=== PATIENT | female | born 1965 | race African-American/Black ===

== ENCOUNTER 2016-11-29 12:20 | Emergency (ER) | payer OTHER ==
[~2016-11-29] VITALS: Ht 162 cm; Wt 48.1 kg
[~2016-11-29 12:20] MED LIST: 'PARAFON FORTE500 M1 PO; ACYCLOVIR800 MG PO; ANAPROX DS550 MG PO; ANTIVERT/2525 M1 PO; ANTIVERT/2525 MG PO; BACTRIM DS 8001 TA1 PO; CIPRO250 MG PO; CIPRO500 MG PO; CIPRODEX 0.3%-7.5 ML OT; CIPROFLOXACIN500 MG PO; CLARITIN10 MG PO; CLINDAMYCIN HC300 MG PO; DARVOCET N 1001 TAB PO; DAYPRO600 M1 PO; DIFLUCAN150 MG PO; DULOXETINE HCL; DULOXETINE HCL30 MG PO; FIORICET 325 MG1 TAB PO; FLAGYL500 MG PO; FLEXERIL10 MG PO; FLEXERIL5 MG PO; FLONASE ALLERG9.9 ML NAS; HYDROCODONE BIT1 T11 PO; KEFLEX500 M1 PO; MACROBID100 M1 PO; MACRODANTIN100 MG PO; MEDROL DOSEPAK4 MG PO; MOBIC7.5 MG PO; MOTRIN800 MG PO; NAPROSYN500 MG PO; NEURONTIN100 MG PO; NEURONTIN300 MG PO; PREDNICOT20 MG PO; PREDNISONE10 MG PO; PREDNISONE20 MG PO; PROVENTIL0.09 MG/AC IH; PYRIDIUM100 MG PO; PYRIDIUM200 M1 PO; PYRIDIUM200 MG PO; ROBITUSSIN AC 110 ML PO; TRAMADOL HCL50 MG PO; TRAMADOL50 MG PO; TYLENOL325 M2 PO; ULTRAM50 MG PO; VENTOLIN H0.09 MG/AC INH; VICO10300 PO; VICODIN 5/500 505 MG PO; VISTARIL50 MG PO; VITAMIN D50000 I3 PO; VITAMIN D50000 IU PO; XANAX0.5 MG PO; ZITHROMAX Z PA250 MG PO; ZITHROMAX100 MG/51 PO; ZITHROMAX250 MG PO; ZOFRAN ODT4 MG SL; ZOFRAN4 MG PO
[2016-11-29 12:33] VITALS: BP 127/65
[2016-11-29] MEDS ORDERED: ULTRAM50 MG PO (12:42)
[2016-11-29] MEDS ORDERED: MACRODANTIN100 M1 PO (12:43)
[2016-11-29 13:27] LABS: BILIRUBIN 1+ (NEGATIVE); BLOOD 3+ (NEGATIVE); CLARITY SL CLOUDY (CLEAR); COLOR YELLOW (YELLOW); GLUCOSE NEGATIVE (NEGATIVE); KETONE TRACE (NEGATIVE); LEUKO ESTERASE 1+ (NEGATIVE); NITRITE NEGATIVE (NEGATIVE); PH 6.5 (5.0-9.0); PROTEIN TRACE (NEGATIVE)
[2016-11-29 14:22] LABS: BACTERIA 2+; CALCIUM OXALATE CRYSTALS TRACE; WBC 16-20 wbc/hpf (0-5)
[2016-11-29 14:23] LABS: URINE REFLEX COMMENT YES (NO)
== END 2016-11-29 14:33 | disposition home or self-care (01) ==
LOC: ED 12:20
PROVIDERS: Physician Assistant
DX: N76.0 Acute vaginitis (principal); A59.9 Trichomoniasis, unspecified; F17.200 Nicotine dependence, unspecified, uncomplicated; Z98.51 Tubal ligation status; Z88.0 Allergy status to penicillin; Z88.1 Allergy status to other antibiotic agents; Z88.8 Allergy status to other drugs, medicaments and biological substances; Z91.040 Latex allergy status; Z98.890 Other specified postprocedural states

== ENCOUNTER → 2017-03-14 | Outpatient (CLI) | payer OTHER ==
[~2017-03-14] MED LIST changes: +MACRODANTIN100 M1 PO
== END | disposition home or self-care (01) ==
LOC: RESCLI 09:34
DX: R03.0 Elevated blood-pressure reading, without diagnosis of hypertension (principal); G89.29 Other chronic pain; Z72.0 Tobacco use

== ENCOUNTER → 2017-04-30 | Outpatient (CLI) | payer OTHER | END | disposition home or self-care (01) | LOC: RESCLI 00:23 | DX: F33.9 Major depressive disorder, recurrent, unspecified (principal); F41.1 Generalized anxiety disorder; R44.0 Auditory hallucinations; D22.9 Melanocytic nevi, unspecified; F17.200 Nicotine dependence, unspecified, uncomplicated ==

== ENCOUNTER 2017-06-11 12:40 | Emergency (ER) | payer OTHER ==
[~2017-06-11] VITALS: Ht 160 cm; Wt 45.4 kg
[2017-06-11 12:46] VITALS: BP 145/70
[2017-06-11] MEDS ORDERED: CLINDAMYCIN HC300 MG PO (13:11)
== END 2017-06-11 13:15 | disposition home or self-care (01) ==
LOC: ED 12:40
DX: K08.89 Other specified disorders of teeth and supporting structures (principal); F17.200 Nicotine dependence, unspecified, uncomplicated; Z98.51 Tubal ligation status; Z88.0 Allergy status to penicillin; Z88.6 Allergy status to analgesic agent; Z88.1 Allergy status to other antibiotic agents; Z91.040 Latex allergy status

== ENCOUNTER → 2017-06-25 | Outpatient (CLI) | payer OTHER ==
--- NOTE | ~2017-06-25 | EKG ---
[place], [place] ELECTROCARDIOGRAM REPORT NAME: [facility]: [id number] UNIT #: [id number] ROOM: DOCTOR: TEE MALDONADO MD BIRTHDATE: [birth year] DOS: 06/25/2017 TIME: 14:42:37. This is a 51-year-old female. Heart rate is 71, normal sinus rhythm at 71 beats per minute. IN interval is 151 milliseconds, QRS duration 92 milliseconds. Corrected QT interval 440 milliseconds, QRS axis is 92. IMPRESSION: 1. Normal sinus rhythm. 2. Minimal ST elevation in lead 2, 3, aVF; T-wave inversion in V1, V2. Inferior septal ischemia should be ruled out in the patient. No old EKG to compare for the patient. TEE MALDONADO MD CM:EKGRPT:ELECTROCARDIOGRAM REPORT [id number] TEE MALDONADO MD
[2017-06-25 15:14] LABS: BASO # 0.1 10*3/uL (0.0-0.1); BASO % 0.7 % (0.0-1.0); EOS # 0.1 10*3/uL (0.0-0.4); EOS % 1.8 % (1.0-4.0); HEMATOCRIT 41.4 % (37.0-47.0); HEMOGLOBIN 13.5 g/dl (12.0-16.0); LYMPH # 3.3 10*3/uL (1.3-4.4); LYMPH % 44.8 % (27.0-41.0); MEAN CELL VOLUME 84.3 fl (81.0-99.0); MEAN CORPUSCULAR HGB 27.5 pg (27.0-31.0); MEAN CORPUSCULAR HGB CONC 32.6 g/dl (33.0-37.0); MEAN PLATELET VOLUME 9.2 fl (9.6-12.3); MONO # 0.5 10*3/uL (0.1-1.0); MONO % 6.3 % (3.0-9.0); NEUT # 3.4 10*3/uL (2.3-7.9); NEUT % 46.3 % (47.0-73.0); PLATELET COUNT AUTOMATED 306 10*3/uL (130-400); RED BLOOD COUNT 4.91 10*6/uL (4.10-5.10); RED CELL DISTRI WIDTH 13.2 % (0-14.5); WHITE BLOOD COUNT 7.4 10*3/uL (4.8-10.8)
[2017-06-25 15:38] LABS: ALBUMIN 4.1 gm/dl (3.1-4.5); ALKALINE PHOSPHATASE 87 U/L (45-117); BUN 8 mg/dl (7-24); CHLORIDE 108 mmol/L (98-107); CREATININE 0.71 mg/dL (0.55-1.02); POTASSIUM 3.9 mmol/L (3.5-5.1); SGOT/AST 14 IU/L (3-35); SGPT/ALT 18 U/L (12-78); SODIUM 140 mmol/L (136-145); TOTAL PROTEIN 7.8 gm/dL (6.4-8.2)
== END | disposition home or self-care (01) ==
LOC: LAB 03:40 → RESCLI 03:40
PROVIDERS: Hospitalist
DX: Z41.9 Encounter for procedure for purposes other than remedying health state, unspecified (principal); R79.89 Other specified abnormal findings of blood chemistry

== ENCOUNTER → 2017-07-02 | Outpatient (CLI) | payer OTHER ==
[~2017-07-02] MED LIST changes: +FEROSUL325 MG PO; +ROBITUSSIN DM 105 ML PO; +VITAMIN D400 UNIT/1 PO
== END | disposition home or self-care (01) ==
LOC: RESCLI 04:30
DX: Z41.9 Encounter for procedure for purposes other than remedying health state, unspecified (principal); E61.1 Iron deficiency; E55.9 Vitamin D deficiency, unspecified; F41.1 Generalized anxiety disorder; G89.29 Other chronic pain; Z72.0 Tobacco use; Z71.6 Tobacco abuse counseling; Z88.0 Allergy status to penicillin; Z88.6 Allergy status to analgesic agent; Z88.1 Allergy status to other antibiotic agents; Z91.040 Latex allergy status

== ENCOUNTER → 2017-07-09 | Outpatient (CLI) | payer OTHER ==
[~2017-07-09] MED LIST changes: -FEROSUL325 MG PO; -ROBITUSSIN DM 105 ML PO; -VITAMIN D400 UNIT/1 PO
== END | disposition home or self-care (01) ==
LOC: RESCLI 03:13
DX: Z41.9 Encounter for procedure for purposes other than remedying health state, unspecified (principal); E61.1 Iron deficiency; E55.9 Vitamin D deficiency, unspecified; F41.1 Generalized anxiety disorder; G89.29 Other chronic pain; Z72.0 Tobacco use; Z71.6 Tobacco abuse counseling; Z88.0 Allergy status to penicillin; Z88.1 Allergy status to other antibiotic agents; Z91.040 Latex allergy status; Z88.6 Allergy status to analgesic agent

== ENCOUNTER → 2017-07-10 | Outpatient (CLI) | payer OTHER | END | disposition home or self-care (01) | LOC: CARD 13:42 | DX: I08.1 Rheumatic disorders of both mitral and tricuspid valves (principal); R94.31 Abnormal electrocardiogram [ECG] [EKG] ==

== ENCOUNTER 2017-07-19 11:10 | Emergency (ER) | payer OTHER ==
[~2017-07-19] VITALS: Ht 162.5 cm; Wt 45.8 kg
[2017-07-19] MEDS ORDERED: VITAMIN D400 UNIT/1 PO (11:22)
[2017-07-19] MEDS ORDERED: FEROSUL325 MG PO (11:24)
[2017-07-19 11:29] VITALS: BP 103/70
[2017-07-19] MEDS ORDERED: FLONASE ALLERG9.9 ML NAS (11:37)
[2017-07-19] MEDS ORDERED: PREDNISONE10 MG PO (11:37)
[2017-07-19] MEDS ORDERED: CLARITIN10 MG PO (11:37)
[2017-07-19] MEDS ORDERED: ROBITUSSIN DM 105 ML PO (11:37)
== END 2017-07-19 12:29 | disposition home or self-care (01) ==
LOC: ED 11:10
DX: B34.9 Viral infection, unspecified (principal); F17.200 Nicotine dependence, unspecified, uncomplicated; Z98.51 Tubal ligation status; Z79.899 Other long term (current) drug therapy; Z88.0 Allergy status to penicillin; Z88.1 Allergy status to other antibiotic agents; Z88.6 Allergy status to analgesic agent; Z91.040 Latex allergy status; Z88.8 Allergy status to other drugs, medicaments and biological substances

== ENCOUNTER → 2017-08-08 | Outpatient (CLI) | payer OTHER ==
[~2017-08-08] MED LIST changes: +FEROSUL325 MG PO; +ROBITUSSIN DM 105 ML PO; +VITAMIN D400 UNIT/1 PO
== END | disposition home or self-care (01) ==
LOC: RESCLI 03:38
DX: Z41.9 Encounter for procedure for purposes other than remedying health state, unspecified (principal); E61.1 Iron deficiency; E55.9 Vitamin D deficiency, unspecified; F41.1 Generalized anxiety disorder; R63.6 Underweight; G89.29 Other chronic pain; Z72.0 Tobacco use; Z71.6 Tobacco abuse counseling

== ENCOUNTER 2017-10-11 22:14 | Emergency (ER) | payer OTHER ==
[~2017-10-11] VITALS: Ht 167.6 cm; Wt 56.7 kg
[2017-10-11 22:19] VITALS: BP 125/75
[2017-10-11] MEDS ORDERED: PROAIR HFA8.5 GM INH (22:52)
[2017-10-11] MEDS ORDERED: ZITHROMAX250 MG PO (22:52)
[2017-10-11] MEDS ORDERED: PREDNISONE20 M1 PO (22:52)
== END 2017-10-11 23:47 | disposition home or self-care (01) ==
LOC: ED 22:14
DX: J20.9 Acute bronchitis, unspecified (principal); F17.200 Nicotine dependence, unspecified, uncomplicated; Z88.0 Allergy status to penicillin; Z88.1 Allergy status to other antibiotic agents; Z88.6 Allergy status to analgesic agent; Z91.040 Latex allergy status; Z88.8 Allergy status to other drugs, medicaments and biological substances; Z79.899 Other long term (current) drug therapy

== ENCOUNTER → 2017-10-16 | Outpatient (CLI) | payer OTHER ==
[~2017-10-16] MED LIST changes: +PREDNISONE20 M1 PO; +PROAIR HFA8.5 GM INH
[2017-10-16 09:49] LABS: HEMATOCRIT 39.3 % (37.0-47.0); HEMOGLOBIN 12.9 g/dl (12.0-16.0); MEAN CELL VOLUME 83.3 fl (81.0-99.0); MEAN CORPUSCULAR HGB 27.3 pg (27.0-31.0); MEAN CORPUSCULAR HGB CONC 32.8 g/dl (33.0-37.0); MEAN PLATELET VOLUME 9.1 fl (9.6-12.3); PLATELET COUNT AUTOMATED 302 10*3/uL (130-400); RED BLOOD COUNT 4.72 10*6/uL (4.10-5.10); RED CELL DISTRI WIDTH 13.2 % (0-14.5); WHITE BLOOD COUNT 12.8 10*3/uL (4.8-10.8)
[2017-10-16 10:05] LABS: ALBUMIN 3.9 gm/dl (3.1-4.5); ALKALINE PHOSPHATASE 63 U/L (45-117); BUN 8 mg/dl (7-24); CHLORIDE 105 mmol/L (98-107); CREATININE 0.73 mg/dL (0.55-1.02); POTASSIUM 3.8 mmol/L (3.5-5.1); SGOT/AST 13 IU/L (3-35); SGPT/ALT 25 U/L (12-78); SODIUM 140 mmol/L (136-145); TOTAL PROTEIN 7.5 gm/dL (6.4-8.2)
[2017-10-16 10:13] LABS: ATYPICAL LYMPHS 5 % (0-0); PLATELET SUFFICIENCY NORMAL (NORMAL); TOTAL CELLS COUNTED 100 #CELLS
== END | disposition home or self-care (01) ==
LOC: LAB 01:02 → RESCLI 01:02
PROVIDERS: Hospitalist
DX: Z41.9 Encounter for procedure for purposes other than remedying health state, unspecified (principal); E61.1 Iron deficiency; E55.9 Vitamin D deficiency, unspecified; F41.1 Generalized anxiety disorder; G89.29 Other chronic pain; Z72.0 Tobacco use; Z71.6 Tobacco abuse counseling

== ENCOUNTER 2017-11-02 11:44 | Emergency (ER) | payer OTHER ==
[~2017-11-02] VITALS: Ht 162.5 cm; Wt 45.8 kg
[2017-11-02 11:54] VITALS: BP 107/66
[2017-11-02] MEDS ORDERED: CHLORZOXAZONE500 M2 PO (12:48)
[2017-11-02] MEDS ORDERED: ZOFRAN4 MG PO (13:57)
== END 2017-11-02 13:55 | disposition home or self-care (01) ==
LOC: ED 11:44
DX: M54.2 Cervicalgia (principal); F17.200 Nicotine dependence, unspecified, uncomplicated; Z98.51 Tubal ligation status; Z79.899 Other long term (current) drug therapy; Z88.0 Allergy status to penicillin; Z88.1 Allergy status to other antibiotic agents; Z88.6 Allergy status to analgesic agent; Z91.040 Latex allergy status; Z88.8 Allergy status to other drugs, medicaments and biological substances

== ENCOUNTER 2018-01-19 16:25 | Emergency (ER) | payer OTHER ==
[~2018-01-19] VITALS: Ht 162.5 cm; Wt 47.6 kg
[~2018-01-19 16:25] MED LIST changes: +CHLORZOXAZONE500 M2 PO
[2018-01-19 16:26] VITALS: BP 123/79
[2018-01-19 16:46] LABS: BILIRUBIN NEGATIVE (NEGATIVE); BLOOD 1+ (NEGATIVE); CLARITY CLEAR (CLEAR); COLOR ORANGE (YELLOW); GLUCOSE TRACE (NEGATIVE); KETONE NEGATIVE (NEGATIVE); LEUKO ESTERASE 3+ (NEGATIVE); NITRITE POSITIVE (NEGATIVE); PH 6.5 (5.0-9.0); SPECIFIC GRAVITY <= 1.005 (1.005-1.030)
[2018-01-19 16:51] LABS: BACTERIA 2+; WBC 16-20 wbc/hpf (0-5)
[2018-01-19] MEDS ORDERED: SEPTDS PO (17:22)
== END 2018-01-19 17:31 | disposition home or self-care (01) ==
LOC: ED 16:25
PROVIDERS: Registered Nurse
DX: N39.0 Urinary tract infection, site not specified (principal); Z11.3 Encounter for screening for infections with a predominantly sexual mode of transmission; Z98.51 Tubal ligation status; Z79.899 Other long term (current) drug therapy; Z88.1 Allergy status to other antibiotic agents; Z91.040 Latex allergy status; Z88.6 Allergy status to analgesic agent; Z88.0 Allergy status to penicillin

== ENCOUNTER → 2018-01-22 | Outpatient (CLI) | payer OTHER ==
[~2018-01-22] MED LIST changes: +SEPTDS PO
[2018-01-22 11:54] LABS: BILIRUBIN 1+ (NEGATIVE); BLOOD 3+ (NEGATIVE); CLARITY SL CLOUDY (CLEAR); COLOR YELLOW (YELLOW); GLUCOSE NEGATIVE (NEGATIVE); KETONE TRACE (NEGATIVE); LEUKO ESTERASE TRACE (NEGATIVE); NITRITE NEGATIVE (NEGATIVE); SPECIFIC GRAVITY 1.025 (1.005-1.030)
[2018-01-22 12:07] LABS: BACTERIA TRACE; CALCIUM OXALATE CRYSTALS 1+; RBC 21-30 rbc/hpf (0-2)
== END | disposition home or self-care (01) ==
LOC: RESCLI 11:46
PROVIDERS: Internal Medicine Nephrology
DX: G89.29 Other chronic pain (principal); R39.9 Unspecified symptoms and signs involving the genitourinary system; E61.1 Iron deficiency; E55.9 Vitamin D deficiency, unspecified; R63.6 Underweight; F17.210 Nicotine dependence, cigarettes, uncomplicated

== ENCOUNTER → 2018-05-16 | Outpatient (CLI) | payer OTHER ==
[~2018-05-16] MED LIST changes: +VITAMIN D31000 UNI1 PO
== END | disposition home or self-care (01) ==
LOC: RAD 10:38
DX: Z01.411 Encounter for gynecological examination (general) (routine) with abnormal findings (principal); Z13.820 Encounter for screening for osteoporosis; R10.2 Pelvic and perineal pain; R10.32 Left lower quadrant pain; D25.9 Leiomyoma of uterus, unspecified; Z78.0 Asymptomatic menopausal state

== ENCOUNTER → 2018-06-21 | Day surgery (SDC) | payer OTHER ==
[~2018-06-21] VITALS: Ht 162.5 cm; Wt 46.7 kg
--- NOTE | ~2018-06-21 | PROC NOTE ---
[place], [place] PROCEDURE NOTE NAME: JOSEFINA VILLAFUERTE [facility] #: [id number] UNIT #: [id number] ROOM: DOCTOR: NIKOS CANO MD BIRTHDATE: [birth year] DOS: 06/21/2018 PROCEDURE: Colonoscopy. INDICATION FOR PROCEDURE: Colon cancer screening. The informed consent was obtained from the patient after indication of procedure, the alternatives and potential complications were explained to her. PROCEDURE MEDICATION: Sedation was administered by Anesthesiology Department. Scope used was Olympus pediatric colonoscope variable stiffness GIF-180, depth of insertion was to the cecum, which was identified by the usual landmarks, the appendiceal orifice, ileocecal valve, and triangular fold, in addition to transillumination in the right lower quadrant. FINDINGS: After adequate sedation, the patient was placed in left lateral decubitus position. Rectal examination showed a normal sphincter tone and no external hemorrhoids. Scope was introduced into the rectum, then advanced to the cecum with marked difficulty due to looping of the left colon. The prep was suboptimal. We were able to visualize approximately 70-80% of the mucosa in the left colon. The visualized mucosa appeared normal with no evidence of polyps, ulcerations, or diverticula. Retroflexed views in the rectum were unremarkable. The scope was then withdrawn after the rectum was decompressed. The patient tolerated the procedure well. IMPRESSION: 1. Suboptimal prep. 2. No polyps seen. PLAN: Repeat screening colonoscopy is advised in 3 years. Office followup will be scheduled p.r.n. NIKOS CANO MD CM:PROCNOTE:PROCEDURE NOTE [id number] NIKOS CANO MD
[2018-06-21 07:32] VITALS: BP 122/80
[2018-06-21 08:31] VITALS: BP 94/59
[2018-06-21 08:46] VITALS: BP 100/59
[2018-06-21 09:01] VITALS: BP 120/72
== END | disposition home or self-care (01) ==
LOC: SDC 06-18 08:00
DX: Z12.11 Encounter for screening for malignant neoplasm of colon (principal); K56.2 Volvulus; M19.90 Unspecified osteoarthritis, unspecified site; G43.909 Migraine, unspecified, not intractable, without status migrainosus; F17.210 Nicotine dependence, cigarettes, uncomplicated; F41.9 Anxiety disorder, unspecified; Z88.0 Allergy status to penicillin; Z88.8 Allergy status to other drugs, medicaments and biological substances; Z88.6 Allergy status to analgesic agent; Z88.1 Allergy status to other antibiotic agents; Z91.040 Latex allergy status; Z98.51 Tubal ligation status; Z98.890 Other specified postprocedural states

== ENCOUNTER → 2018-07-10 | Outpatient (CLI) | payer OTHER ==
[2018-07-10 13:36] LABS: BILIRUBIN NEGATIVE (NEGATIVE); BLOOD 2+ (NEGATIVE); CLARITY SL CLOUDY (CLEAR); COLOR YELLOW (YELLOW); GLUCOSE NEGATIVE (NEGATIVE); KETONE NEGATIVE (NEGATIVE); LEUKO ESTERASE 1+ (NEGATIVE); NITRITE POSITIVE (NEGATIVE); SPECIFIC GRAVITY <= 1.005 (1.005-1.030); UROBILINOGEN 0.2 E.U./dl (0.2-1.0)
[2018-07-10 14:01] LABS: WBC 31-40 wbc/hpf (0-5)
[2018-07-10 14:02] LABS: BACTERIA 4+; EPITHELIAL CELLS 20-30
== END ==
LOC: RESCLI 04:22
PROVIDERS: Family Medicine
DX: N39.0 Urinary tract infection, site not specified (principal); G89.29 Other chronic pain; E55.9 Vitamin D deficiency, unspecified; R30.0 Dysuria; R31.9 Hematuria, unspecified; Z72.0 Tobacco use; Z71.6 Tobacco abuse counseling

== ENCOUNTER → 2018-07-18 | Outpatient (CLI) | payer OTHER | END | disposition home or self-care (01) | LOC: RESCLI 08:13 | DX: Z12.11 Encounter for screening for malignant neoplasm of colon (principal); M85.851 Other specified disorders of bone density and structure, right thigh; A63.0 Anogenital (venereal) warts; E61.1 Iron deficiency; E55.9 Vitamin D deficiency, unspecified; G89.29 Other chronic pain; F17.200 Nicotine dependence, unspecified, uncomplicated; Z71.6 Tobacco abuse counseling; Z79.899 Other long term (current) drug therapy; Z88.8 Allergy status to other drugs, medicaments and biological substances; Z88.0 Allergy status to penicillin ==

== ENCOUNTER → 2018-08-16 | Outpatient (CLI) | payer OTHER | END | disposition home or self-care (01) | LOC: RESCLI 00:52 | DX: E61.1 Iron deficiency (principal); G89.29 Other chronic pain; E55.9 Vitamin D deficiency, unspecified; J00 Acute nasopharyngitis [common cold]; J40 Bronchitis, not specified as acute or chronic; N95.1 Menopausal and female climacteric states; F41.1 Generalized anxiety disorder; B37.9 Candidiasis, unspecified; J06.9 Acute upper respiratory infection, unspecified; N39.0 Urinary tract infection, site not specified; R19.7 Diarrhea, unspecified; F17.200 Nicotine dependence, unspecified, uncomplicated; R11.2 Nausea with vomiting, unspecified; Z79.899 Other long term (current) drug therapy; Z88.0 Allergy status to penicillin; Z88.8 Allergy status to other drugs, medicaments and biological substances ==

== ENCOUNTER → 2018-08-29 | Outpatient (CLI) | payer OTHER ==
--- NOTE | ~2018-08-29 | EKG ---
[place], [place] ELECTROCARDIOGRAM REPORT NAME: JOSEFINA VILLAFUERTE UNIT #: [id number] ROOM: DOCTOR: EPIPHANY DRAFT REPORT BIRTHDATE: [birth year] [facility] Test Date: 2018-08-29 Test Time: 11:42:14 Pat Name: JOSEFINA VILLAFUERTE Department: Room: Gender: F Workers' Compensation Magistrate: Marge Mabry : 1965 Requested By: RON MALDONADO Order Number: [id number] Reading MD: Ron Maldonado MD Measurements Intervals [place] Rate: 72 P: 86 MD: 155 QRS: 92 QRSD: 88 T: 76 QT: 386 QTc: 423 Interpretive Statements Sinus rhythm Borderline right axis deviation Abnrm T, consider ischemia, anterolateral lds Compared to ECG 08/06/2018 22:32:08 Possible ischemia now present Atrial abnormality no longer present Electronically Signed On 08-30-2018 13:50:02 PST by Ron Maldonado MD CM:EKGRPT:ELECTROCARDIOGRAM REPORT [id number] RON MALDONADO MD EPIPHANY DRAFT REPORT RON MALDONADO MD
== END | disposition home or self-care (01) ==
LOC: RESCLI 04:08
DX: G89.29 Other chronic pain (principal); E61.1 Iron deficiency; E55.9 Vitamin D deficiency, unspecified; F41.1 Generalized anxiety disorder; M85.89 Other specified disorders of bone density and structure, multiple sites; R63.6 Underweight; F17.210 Nicotine dependence, cigarettes, uncomplicated; M85.859 Other specified disorders of bone density and structure, unspecified thigh; M81.0 Age-related osteoporosis without current pathological fracture; K08.9 Disorder of teeth and supporting structures, unspecified; R94.31 Abnormal electrocardiogram [ECG] [EKG]; Z79.899 Other long term (current) drug therapy; Z91.040 Latex allergy status; Z71.6 Tobacco abuse counseling; Z88.0 Allergy status to penicillin

== ENCOUNTER → 2018-10-07 | Outpatient (CLI) | payer OTHER ==
[2018-10-07 08:57] LABS: BUN 8 mg/dl (7-24); CREATININE 0.92 mg/dL (0.55-1.02)
== END | disposition home or self-care (01) ==
LOC: CT 08:29
PROVIDERS: Urology
DX: N28.1 Cyst of kidney, acquired (principal)

== ENCOUNTER 2018-11-20 13:28 | Emergency (ER) | payer OTHER ==
[~2018-11-20] VITALS: Ht 162.5 cm; Wt 46.7 kg
--- NOTE | ~2018-11-20 | EKG ---
[place], [place] ELECTROCARDIOGRAM REPORT NAME: JOSEFINA VILLAFUERTE UNIT #: [id number] ROOM: DOCTOR: EPIPHANY DRAFT REPORT BIRTHDATE: [birth year] [facility] Test Date: 2018-11-20 Test Time: 13:47:47 Pat Name: JOSEFINA VILLAFUERTE Department: Room: Gender: F Security System Administrator: Marge Mabry : 1965 Requested By: ADITI WOOTEN Order Number: [id number] Reading MD: Dayana See MD Measurements Intervals [place] Rate: 112 P: 86 MS: 131 QRS: 97 QRSD: 89 T: 79 QT: 312 QTc: 426 Interpretive Statements Sinus tachycardia with irregular rate Biatrial enlargement Borderline right axis deviation Compared to ECG 08/29/2018 11:42:14 Atrial abnormality now present Sinus rhythm no longer present Possible ischemia no longer present Electronically Signed On 11-22-2018 13:54:11 PDT by Dayana See MD CM:EKGRPT:ELECTROCARDIOGRAM REPORT [id number] ADITI MAN DRAFT REPORT ADITI WOOTEN DO
[2018-11-20 13:32] VITALS: BP 126/92
[2019-01-19] MEDS ORDERED: MACROBID100 M1 PO (20:00)
[2019-01-19] MEDS ORDERED: PYRIDIUM200 M1 PO (20:00)
== END 2018-11-20 16:22 | disposition home or self-care (01) ==
LOC: ED 13:28
DX: M79.602 Pain in left arm (principal); R00.0 Tachycardia, unspecified; F17.200 Nicotine dependence, unspecified, uncomplicated; Z88.0 Allergy status to penicillin; Z88.1 Allergy status to other antibiotic agents; Z88.6 Allergy status to analgesic agent; Z88.8 Allergy status to other drugs, medicaments and biological substances; Z79.899 Other long term (current) drug therapy

== ENCOUNTER → 2018-11-20 | Outpatient (CLI) | payer OTHER | END | disposition home or self-care (01) | LOC: RESCLI 02:34 | DX: M25.532 Pain in left wrist (principal); R00.0 Tachycardia, unspecified; F17.200 Nicotine dependence, unspecified, uncomplicated; Z71.6 Tobacco abuse counseling; Z79.899 Other long term (current) drug therapy; Z88.0 Allergy status to penicillin ==

== ENCOUNTER → 2019-01-23 | Outpatient (CLI) | payer OTHER ==
[2019-01-23 11:29] LABS: BASO # 0.1 10*3/uL (0.0-0.1); BASO % 0.9 % (0.0-1.0); EOS # 0.3 10*3/uL (0.0-0.4); EOS % 4.2 % (1.0-4.0); HEMATOCRIT 39.4 % (37.0-47.0); HEMOGLOBIN 12.6 g/dl (12.0-16.0); LYMPH # 3.3 10*3/uL (1.3-4.4); LYMPH % 49.2 % (27.0-41.0); MEAN CELL VOLUME 85.3 fl (81.0-99.0); MEAN CORPUSCULAR HGB 27.3 pg (27.0-31.0); MEAN PLATELET VOLUME 9.3 fl (9.6-12.3); MONO # 0.5 10*3/uL (0.1-1.0); MONO % 7.5 % (3.0-9.0); NEUT # 2.6 10*3/uL (2.3-7.9); NEUT % 38.1 % (47.0-73.0); PLATELET COUNT AUTOMATED 271 10*3/uL (130-400); RED BLOOD COUNT 4.62 10*6/uL (4.10-5.10); RED CELL DISTRI WIDTH 13.2 % (0-14.5); WHITE BLOOD COUNT 6.7 10*3/uL (4.8-10.8)
[2019-01-23 12:01] LABS: ALBUMIN 3.8 gm/dl (3.1-4.5); BUN 9 mg/dl (7-24); CHLORIDE 109 mmol/L (98-107); CHOLESTEROL 158 mg/dL (<200); CREATININE 0.78 mg/dL (0.55-1.02); IRON 114 ug/dL (50-170); SGOT/AST 10 IU/L (3-35); SGPT/ALT 19 U/L (12-78); SODIUM 142 mmol/L (136-145)
[2019-01-23 12:09] LABS: ALKALINE PHOSPHATASE 76 U/L (45-117); HDL CHOLESTEROL 51 mg/dl (40-60); LDL CHOLESTEROL 92 mg/dL (9-159); TOTAL IRON BINDING CAPACITY 291 ug/dl (250-450); TOTAL PROTEIN 7.2 gm/dL (6.4-8.2); TRIGLYCERIDES 77 mg/dl (<150); VLDL CHOLESTEROL 15 mg/dL (6-40)
[2019-01-23 12:56] LABS: VITAMIN D, 25-HYDROXY 23.9 ng/mL (30-100)
== END | disposition home or self-care (01) ==
LOC: LAB 10:55
PROVIDERS: Internal Medicine Nephrology
DX: E61.1 Iron deficiency (principal); R63.6 Underweight

== ENCOUNTER → 2019-11-19 | Outpatient (CLI) | payer OTHER | END | disposition home or self-care (01) | LOC: RESCLI 01:28 | DX: N39.0 Urinary tract infection, site not specified (principal); E61.1 Iron deficiency; E55.9 Vitamin D deficiency, unspecified; G89.29 Other chronic pain; M85.89 Other specified disorders of bone density and structure, multiple sites; M19.90 Unspecified osteoarthritis, unspecified site; M54.9 Dorsalgia, unspecified; E53.8 Deficiency of other specified B group vitamins; K44.9 Diaphragmatic hernia without obstruction or gangrene; M48.061 Spinal stenosis, lumbar region without neurogenic claudication; F17.200 Nicotine dependence, unspecified, uncomplicated; Z79.899 Other long term (current) drug therapy; Z98.51 Tubal ligation status; Z98.890 Other specified postprocedural states; Z87.19 Personal history of other diseases of the digestive system; Z88.6 Allergy status to analgesic agent; Z88.1 Allergy status to other antibiotic agents; Z88.0 Allergy status to penicillin; Z91.048 Other nonmedicinal substance allergy status ==

== ENCOUNTER 2020-12-01 07:51 | Emergency (ER) | payer OTHER ==
[~2020-12-01] VITALS: Wt 49.4 kg
[2020-12-01 07:56] VITALS: BP 133/80
== END 2020-12-01 09:15 | disposition home or self-care (01) ==
LOC: ED 07:51
DX: S89.92XA Unspecified injury of left lower leg, initial encounter (principal); F41.9 Anxiety disorder, unspecified; G43.909 Migraine, unspecified, not intractable, without status migrainosus; F17.200 Nicotine dependence, unspecified, uncomplicated; Z88.0 Allergy status to penicillin; Z91.040 Latex allergy status; Z88.8 Allergy status to other drugs, medicaments and biological substances; Z79.899 Other long term (current) drug therapy; Z98.51 Tubal ligation status; Z98.890 Other specified postprocedural states; X58.XXXA Exposure to other specified factors, initial encounter; Y93.89 Activity, other specified; Y92.89 Other specified places as the place of occurrence of the external cause; Y99.8 Other external cause status

== ENCOUNTER 2021-03-30 20:49 | Emergency (ER) | payer OTHER ==
[~2021-03-30] VITALS: Ht 162.5 cm; Wt 49.9 kg
[2021-03-30 21:05] VITALS: BP 132/78
[2021-03-30 21:24] LABS: BASO # 0.1 10*3/uL (0.0-0.1); BASO % 0.6 % (0.0-1.0); EOS # 0.2 10*3/uL (0.0-0.4); EOS % 1.9 % (1.0-4.0); HEMATOCRIT 37.1 % (37.0-47.0); LYMPH # 3.8 10*3/uL (1.3-4.4); LYMPH % 36.1 % (27.0-41.0); MEAN CELL VOLUME 84.1 fl (81.0-99.0); MEAN CORPUSCULAR HGB 27.7 pg (27.0-31.0); MEAN CORPUSCULAR HGB CONC 32.9 g/dl (33.0-37.0); MEAN PLATELET VOLUME 8.7 fl (9.6-12.3); MONO # 0.6 10*3/uL (0.1-1.0); MONO % 5.8 % (3.0-9.0); NEUT # 5.8 10*3/uL (2.3-7.9); NEUT % 55.4 % (47.0-73.0); PLATELET COUNT AUTOMATED 334 10*3/uL (130-400); RED BLOOD COUNT 4.41 10*6/uL (4.10-5.10); RED CELL DISTRI WIDTH 13.2 % (0-14.5); WHITE BLOOD COUNT 10.5 10*3/uL (4.8-10.8)
[2021-03-30 21:40] LABS: ALBUMIN 4.2 gm/dl (3.1-4.5); ALKALINE PHOSPHATASE 66 U/L (45-117); BUN 10 mg/dl (7-24); CHLORIDE 108 mmol/L (98-107); POTASSIUM 3.2 mmol/L (3.5-5.1); SGOT/AST 10 IU/L (3-35); SGPT/ALT 18 U/L (12-78); SODIUM 137 mmol/L (136-145); TOTAL PROTEIN 7.5 gm/dL (6.4-8.2)
[2021-03-30 21:44] LABS: TROPONIN I < 0.015 ng/ml (<0.045)
== END 2021-03-30 22:13 | disposition home or self-care (01) ==
LOC: ED 20:49
PROVIDERS: Internal Medicine
DX: F41.9 Anxiety disorder, unspecified (principal); E87.6 Hypokalemia; F17.200 Nicotine dependence, unspecified, uncomplicated; Z98.51 Tubal ligation status; Z79.899 Other long term (current) drug therapy; Z88.0 Allergy status to penicillin; Z88.1 Allergy status to other antibiotic agents; Z91.040 Latex allergy status

== ENCOUNTER 2021-04-07 18:32 | Emergency (ER) | payer OTHER ==
[~2021-04-07] VITALS: Ht 162.5 cm; Wt 48.5 kg
[2021-04-07 18:55] VITALS: BP 154/76
== END 2021-04-07 19:45 | disposition home or self-care (01) ==
LOC: ED 18:32
DX: F41.9 Anxiety disorder, unspecified (principal); T43.595A Adverse effect of other antipsychotics and neuroleptics, initial encounter; T43.215A Adverse effect of selective serotonin and norepinephrine reuptake inhibitors, initial encounter; Z88.0 Allergy status to penicillin; Z88.1 Allergy status to other antibiotic agents; Z91.040 Latex allergy status; Y92.89 Other specified places as the place of occurrence of the external cause

== ENCOUNTER 2021-09-18 14:02 | Emergency (ER) | payer OTHER ==
[~2021-09-18] VITALS: Ht 162.5 cm; Wt 51.3 kg
[2021-09-18 14:06] VITALS: BP 123/50
[2021-09-18] MEDS ORDERED: ZOFRAN4 MG PO (16:42)
== END 2021-09-18 17:06 | disposition home or self-care (01) ==
LOC: ED 14:02
DX: U07.1 COVID-19 (principal); F17.200 Nicotine dependence, unspecified, uncomplicated; Z88.0 Allergy status to penicillin; Z88.1 Allergy status to other antibiotic agents; Z91.040 Latex allergy status; Z88.8 Allergy status to other drugs, medicaments and biological substances; Z79.899 Other long term (current) drug therapy

== ENCOUNTER 2022-05-28 09:31 | Emergency (ER) | payer OTHER ==
[~2022-05-28] VITALS: Ht 162.5 cm; Wt 49.4 kg
[2022-05-28 09:34] VITALS: BP 110/78
[2022-05-28] MEDS ORDERED: PREDNISONE50 MG PO ×2 (10:47→10:55)
[2022-05-28] MEDS ORDERED: ZITHROMAX250 MG PO ×2 (10:47→10:55)
== END 2022-05-28 10:49 | disposition home or self-care (01) ==
LOC: ED 09:31
DX: J32.8 Other chronic sinusitis (principal); Z88.0 Allergy status to penicillin; Z88.1 Allergy status to other antibiotic agents; Z91.040 Latex allergy status; Z88.8 Allergy status to other drugs, medicaments and biological substances; Z79.899 Other long term (current) drug therapy; Z98.51 Tubal ligation status; Z87.891 Personal history of nicotine dependence

== ENCOUNTER 2022-06-03 09:30 | Emergency (ER) | payer OTHER ==
[~2022-06-03] VITALS: Ht 162.5 cm; Wt 49.4 kg
[~2022-06-03 09:30] MED LIST changes: +PREDNISONE50 MG PO
[2022-06-03 09:41] VITALS: BP 139/92
[2022-06-03] MEDS ORDERED: FLUOXETINE HCL10 MG PO (09:48)
[2022-06-03] MEDS ORDERED: HYDROXYZINE HCL25 MG PO (09:49)
[2022-06-03] MEDS ORDERED: DEBROX15 ML OT (10:01)
== END 2022-06-03 10:10 | disposition home or self-care (01) ==
LOC: ED 09:30
DX: H61.23 Impacted cerumen, bilateral (principal); R09.81 Nasal congestion; Z88.0 Allergy status to penicillin; Z91.040 Latex allergy status; Z88.1 Allergy status to other antibiotic agents; Z88.8 Allergy status to other drugs, medicaments and biological substances; Z79.899 Other long term (current) drug therapy; Z98.51 Tubal ligation status; Z87.891 Personal history of nicotine dependence

== ENCOUNTER 2022-08-22 11:42 | Emergency (ER) | payer OTHER ==
[~2022-08-22] VITALS: Ht 162.5 cm; Wt 49.9 kg
[~2022-08-22 11:42] MED LIST changes: +DEBROX15 ML OT; +FLUOXETINE HCL10 MG PO; +HYDROXYZINE HCL25 MG PO
[2022-08-22 12:19] VITALS: BP 125/64
[2022-08-22 13:23] LABS: BILIRUBIN Negative (Negative); BLOOD 3+ (Negative); CLARITY Cloudy (Clear); COLOR Yellow (Yellow); GLUCOSE Negative (Negative); KETONE Negative (Negative); LEUKO ESTERASE 3+ (Negative); NITRITE Negative (Negative)
[2022-08-22 13:39] LABS: BACTERIA 2+; WBC TNTC wbc/hpf (0-5)
[2022-08-22] MEDS ORDERED: MACROBID100 M1 PO (13:48)
== END 2022-08-22 13:27 | disposition home or self-care (01) ==
LOC: ED 11:42
PROVIDERS: Physician Assistant
DX: N39.0 Urinary tract infection, site not specified (principal); Z88.0 Allergy status to penicillin; Z88.1 Allergy status to other antibiotic agents; Z91.040 Latex allergy status; Z88.8 Allergy status to other drugs, medicaments and biological substances; Z79.899 Other long term (current) drug therapy; Z98.51 Tubal ligation status

== ENCOUNTER 2022-09-14 02:19 | Emergency (ER) | payer OTHER ==
[~2022-09-14] VITALS: Ht 162.5 cm; Wt 49.9 kg
== END 2022-09-14 06:05 | disposition home or self-care (01) ==
LOC: ED 02:19
DX: S33.6XXA Sprain of sacroiliac joint, initial encounter (principal); G89.4 Chronic pain syndrome; Z88.0 Allergy status to penicillin; Z88.1 Allergy status to other antibiotic agents; Z88.8 Allergy status to other drugs, medicaments and biological substances; Z91.040 Latex allergy status; Z79.899 Other long term (current) drug therapy; Z98.51 Tubal ligation status; Z87.891 Personal history of nicotine dependence; X58.XXXA Exposure to other specified factors, initial encounter; Y93.89 Activity, other specified; Y92.89 Other specified places as the place of occurrence of the external cause; Y99.8 Other external cause status

== ENCOUNTER → 2022-11-01 | Outpatient (CLI) | payer OTHER ==
[2022-11-01 12:02] LABS: BASO # 0.1 10*3/uL (0.0-0.1); BASO % 0.9 % (0.0-1.0); EOS # 0.3 10*3/uL (0.0-0.4); EOS % 3.8 % (1.0-4.0); HEMATOCRIT 43.8 % (37.0-47.0); LYMPH # 3.1 10*3/uL (1.3-4.4); LYMPH % 45.2 % (27.0-41.0); MEAN CELL VOLUME 85.4 fl (81.0-99.0); MEAN CORPUSCULAR HGB 27.1 pg (27.0-31.0); MEAN CORPUSCULAR HGB CONC 31.7 g/dl (33.0-37.0); MEAN PLATELET VOLUME 9.5 fl (9.6-12.3); MONO # 0.6 10*3/uL (0.1-1.0); MONO % 8.4 % (3.0-9.0); NEUT # 2.8 10*3/uL (2.3-7.9); NEUT % 41.4 % (47.0-73.0); PLATELET COUNT AUTOMATED 349 10*3/uL (130-400); RED BLOOD COUNT 5.13 10*6/uL (4.10-5.10); RED CELL DISTRI WIDTH 13.2 % (0-14.5); WHITE BLOOD COUNT 6.8 10*3/uL (4.8-10.8)
[2022-11-01 12:28] LABS: ALKALINE PHOSPHATASE 71 U/L (46-116); BUN 7 mg/dl (9-23); CHLORIDE 107 mmol/L (98-107); CHOLESTEROL 163 mg/dL (<200); LDL CHOLESTEROL 96 mg/dL (9-159); POTASSIUM 4.3 mmol/L (3.4-5.1); SGPT/ALT 15 U/L (10-49); TOTAL PROTEIN 7.4 gm/dL (6.0-8.0); TRIGLYCERIDES 96 mg/dl (<150)
== END | disposition home or self-care (01) ==
LOC: LAB 11:00
PROVIDERS: ATTEND Nurse Practitioner Family
DX: F41.9 Anxiety disorder, unspecified (principal); E55.9 Vitamin D deficiency, unspecified; Z72.0 Tobacco use; Z12.31 Encounter for screening mammogram for malignant neoplasm of breast

== ENCOUNTER → 2023-02-06 | Outpatient (CLI) | payer OTHER ==
[2023-02-06 11:08] LABS: BASO # 0.1 10*3/uL (0.0-0.1); BASO % 0.9 % (0.0-1.0); EOS # 0.2 10*3/uL (0.0-0.4); EOS % 3.4 % (1.0-4.0); HEMATOCRIT 41.3 % (37.0-47.0); LYMPH # 2.9 10*3/uL (1.3-4.4); MEAN CELL VOLUME 84.8 fl (81.0-99.0); MEAN CORPUSCULAR HGB 27.7 pg (27.0-31.0); MEAN CORPUSCULAR HGB CONC 32.7 g/dl (33.0-37.0); MEAN PLATELET VOLUME 8.8 fl (9.6-12.3); MONO # 0.5 10*3/uL (0.1-1.0); MONO % 6.4 % (3.0-9.0); NEUT # 3.4 10*3/uL (2.3-7.9); PLATELET COUNT AUTOMATED 357 10*3/uL (130-400); RED BLOOD COUNT 4.87 10*6/uL (4.10-5.10); RED CELL DISTRI WIDTH 13.2 % (0-14.5)
[2023-02-06 11:41] LABS: ALKALINE PHOSPHATASE 71 U/L (46-116); BUN 11 mg/dl (9-23); CHLORIDE 109 mmol/L (98-107); CHOLESTEROL 171 mg/dL (<200); LDL CHOLESTEROL 103 mg/dL (9-159); POTASSIUM 3.8 mmol/L (3.4-5.1); SGPT/ALT 15 U/L (10-49); TOTAL PROTEIN 7.4 gm/dL (6.0-8.0); TRIGLYCERIDES 96 mg/dl (<150)
== END | disposition home or self-care (01) ==
LOC: LAB 10:46
PROVIDERS: ATTEND Nurse Practitioner Family
DX: F41.1 Generalized anxiety disorder (principal); E55.9 Vitamin D deficiency, unspecified; R63.4 Abnormal weight loss; Z72.0 Tobacco use

== ENCOUNTER → 2023-02-08 | Outpatient (CLI) | payer OTHER | END | disposition home or self-care (01) | LOC: LAB 10:59 | PROVIDERS: ATTEND Nurse Practitioner Family | DX: R73.09 Other abnormal glucose (principal) ==

== ENCOUNTER 2023-05-18 18:02 | Emergency (ER) | payer OTHER ==
[~2023-05-18] VITALS: Ht 162.5 cm; Wt 47.2 kg
[2023-05-18 18:17] VITALS: BP 133/81
[2023-05-18] MEDS ORDERED: TRAMADOL HCL50 MG PO (18:18)
[2023-05-18] MEDS ORDERED: PREDNISONE50 MG PO (18:32)
[2023-05-18] MEDS ORDERED: VIBRAMYCIN100 MG PO (18:32)
== END 2023-05-18 18:32 | disposition home or self-care (01) ==
LOC: ED 18:02
DX: J06.9 Acute upper respiratory infection, unspecified (principal); H92.02 Otalgia, left ear; F41.9 Anxiety disorder, unspecified; G43.909 Migraine, unspecified, not intractable, without status migrainosus; Z88.0 Allergy status to penicillin; Z88.1 Allergy status to other antibiotic agents; Z88.8 Allergy status to other drugs, medicaments and biological substances; Z88.6 Allergy status to analgesic agent; Z91.040 Latex allergy status; Z98.51 Tubal ligation status; Z98.890 Other specified postprocedural states; F17.200 Nicotine dependence, unspecified, uncomplicated

== ENCOUNTER 2023-05-27 00:22 | Emergency (ER) | payer OTHER ==
[~2023-05-27] VITALS: Ht 162.5 cm; Wt 46.3 kg
[~2023-05-27 00:22] MED LIST changes: +VIBRAMYCIN100 MG PO
[2023-05-27 00:50] VITALS: BP 140/82
[2023-05-27] MEDS ORDERED: OMNICEF300 MG PO ×3 (01:06→01:35)
[2023-05-27] MEDS ORDERED: HYDROCORTISONE OT (01:06)
== END 2023-05-27 01:24 | disposition home or self-care (01) ==
LOC: ED 00:22
DX: H66.92 Otitis media, unspecified, left ear (principal); H60.92 Unspecified otitis externa, left ear; F41.9 Anxiety disorder, unspecified; G43.909 Migraine, unspecified, not intractable, without status migrainosus; Z88.0 Allergy status to penicillin; Z88.1 Allergy status to other antibiotic agents; Z88.6 Allergy status to analgesic agent; Z91.040 Latex allergy status; Z98.51 Tubal ligation status; Z98.890 Other specified postprocedural states; F17.200 Nicotine dependence, unspecified, uncomplicated

== ENCOUNTER → 2023-06-19 | Outpatient (CLI) | payer OTHER ==
[~2023-06-19] MED LIST changes: +HYDROCORTISONE OT; +OMNICEF300 MG PO
== END | disposition home or self-care (01) ==
LOC: CT 16:29
PROVIDERS: ATTEND Specialist
DX: J01.00 Acute maxillary sinusitis, unspecified (principal)

== ENCOUNTER 2023-10-04 06:35 | Emergency (ER) | payer OTHER ==
[~2023-10-04] VITALS: Ht 162.5 cm; Wt 47.2 kg
[2023-10-04 06:57] VITALS: BP 128/102
[2023-10-04] MEDS ORDERED: VIBRAMYCIN100 MG PO (07:10)
== END 2023-10-04 07:15 | disposition home or self-care (01) ==
LOC: ED 06:35
DX: J02.8 Acute pharyngitis due to other specified organisms (principal); G43.909 Migraine, unspecified, not intractable, without status migrainosus; F41.9 Anxiety disorder, unspecified; F17.210 Nicotine dependence, cigarettes, uncomplicated; Z88.0 Allergy status to penicillin; Z88.1 Allergy status to other antibiotic agents; Z88.6 Allergy status to analgesic agent; Z88.8 Allergy status to other drugs, medicaments and biological substances; Z91.040 Latex allergy status; Z98.51 Tubal ligation status; Z98.890 Other specified postprocedural states

== ENCOUNTER 2023-10-11 22:20 | Emergency (ER) | payer OTHER ==
[~2023-10-11] VITALS: Ht 162.5 cm; Wt 63.5 kg
[2023-10-11 22:30] VITALS: BP 112/60
[2023-10-11] MEDS ORDERED: CLINDAMYCIN HC300 MG PO (22:56)
== END 2023-10-11 23:06 | disposition home or self-care (01) ==
LOC: ED 22:20
DX: H66.92 Otitis media, unspecified, left ear (principal); F41.9 Anxiety disorder, unspecified; E44.0 Moderate protein-calorie malnutrition; F17.200 Nicotine dependence, unspecified, uncomplicated; Z88.0 Allergy status to penicillin; Z88.1 Allergy status to other antibiotic agents; Z88.8 Allergy status to other drugs, medicaments and biological substances; Z91.040 Latex allergy status; Z79.899 Other long term (current) drug therapy; Z98.51 Tubal ligation status

== ENCOUNTER 2023-10-17 12:23 | Emergency (ER) | payer OTHER ==
[~2023-10-17] VITALS: Ht 162.5 cm; Wt 45.8 kg
[2023-10-17 12:41] VITALS: BP 151/87
== END 2023-10-17 13:28 | disposition home or self-care (01) ==
LOC: ED 12:23
DX: H66.93 Otitis media, unspecified, bilateral (principal); F41.9 Anxiety disorder, unspecified; F17.200 Nicotine dependence, unspecified, uncomplicated; G43.909 Migraine, unspecified, not intractable, without status migrainosus; Z88.0 Allergy status to penicillin; Z88.1 Allergy status to other antibiotic agents; Z88.6 Allergy status to analgesic agent; Z91.040 Latex allergy status; Z88.8 Allergy status to other drugs, medicaments and biological substances; Z98.51 Tubal ligation status; Z98.890 Other specified postprocedural states

== ENCOUNTER 2024-06-17 16:51 | Emergency (ER) | payer OTHER ==
[~2024-06-17] VITALS: Ht 162.5 cm; Wt 47.2 kg
[2024-06-17 17:10] VITALS: BP 151/87
[2024-06-17] MEDS ORDERED: CEPHALEXIN500 M1 PO (17:34)
== END 2024-06-17 17:39 | disposition home or self-care (01) ==
LOC: ED 16:51
DX: J32.9 Chronic sinusitis, unspecified (principal); H92.03 Otalgia, bilateral; F41.9 Anxiety disorder, unspecified; G43.909 Migraine, unspecified, not intractable, without status migrainosus; F17.200 Nicotine dependence, unspecified, uncomplicated; Z88.0 Allergy status to penicillin; Z88.1 Allergy status to other antibiotic agents; Z88.6 Allergy status to analgesic agent; Z91.040 Latex allergy status; Z88.8 Allergy status to other drugs, medicaments and biological substances; Z98.51 Tubal ligation status; Z98.890 Other specified postprocedural states

== ENCOUNTER 2025-03-28 02:35 | Emergency (ER) | payer OTHER ==
[~2025-03-28] VITALS: Ht 162.5 cm; Wt 48.5 kg
[~2025-03-28 02:35] MED LIST changes: +CEPHALEXIN500 M1 PO
[2025-03-28 02:43] VITALS: BP 150/92
[2025-03-28] MEDS ORDERED: DOXYCYCLINE HY100 M3 PO (03:43)
== END 2025-03-28 04:04 | disposition home or self-care (01) ==
LOC: ED 02:35
DX: J32.9 Chronic sinusitis, unspecified (principal); H92.03 Otalgia, bilateral; F41.9 Anxiety disorder, unspecified; Z88.0 Allergy status to penicillin; Z88.1 Allergy status to other antibiotic agents; Z88.6 Allergy status to analgesic agent; Z91.040 Latex allergy status; Z88.8 Allergy status to other drugs, medicaments and biological substances; Z87.891 Personal history of nicotine dependence

== ENCOUNTER → 2025-05-12 | Outpatient (CLI) | payer OTHER ==
[~2025-05-12] MED LIST changes: +DOXYCYCLINE HY100 M3 PO
== END ==
LOC: MRI 05-07 09:00
PROVIDERS: ATTEND Nurse Practitioner Psychiatric/Mental Health
DX: M51.16 Intervertebral disc disorders with radiculopathy, lumbar region (principal); M48.061 Spinal stenosis, lumbar region without neurogenic claudication